=== PATIENT | male | born 2000 | race Caucasian/White ===

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

== ENCOUNTER 2021-07-23 10:02 | Emergency (ER) | payer OTHER, SELFPAY ==
[2021-07-23 10:15] VITALS: BP 157/88; PULSE 76; RESP 18; TEMP 36.8; O2SAT 100
--- NOTE | 2021-07-23 10:37 | ED.EYEPROB ---
HPI - Eye Problem General Chief complaint: Eye Problems Stated complaint: left eye pain Time Seen by Provider: 07/23/21 10:37 Source: patient Mode of arrival: ambulatory Limitations: no limitations History of Present Illness HPI Narrative: 20-year-old male presented for complaint of left eye irritation. He states he felt like he got some sawdust inside the eye about an hour prior to arrival. He states he rubbed it and rinsed it with a hose for about 30 minutes. He still feels something is in the eye. Endorses watery eye. He denies pain, photophobia, vision changes or headache. chief complaint: eye pain Related Data Allergies Allergy/AdvReac Type Severity Reaction Status Date / Time No Known Allergies Allergy Mild Verified 08/14/20 10:43 Review of Systems Review of Systems: CONSTITUTIONAL: Denies body aches, fever, chills EYES:Endorses swelling, redness to left eye ENT: Denies rhinorrhea, congestion, sore throat, or otalgia. CARDIOVASCULAR: Denies chest pain, palpitations RESPIRATORY: Denies cough or dyspnea. NEUROLOGIC: Denies headache, numbness, tingling, or weakness. All systems reviewed & are unremarkable except as noted in HPI and below PMFSH Past Medical History Medical History Cyst History of hypertension Surgical History Surgical History History of incision and drainage LT axilla Family History Family History Mother Blood clot associated with vein wall inflammation Diabetes mellitus Sibling Diabetes mellitus Social History Social History Smoking status: Never smoker Tobacco type: cigarettes Second hand tobacco smoke exposure: No Alcohol intake: never Substance use: current Substance use type: does not use Gender identity (if verbalized by the patient): Male Comments At time of signature, I have reviewed and agree with nursing past medical, surgical, social and family history unless otherwise noted. Please see nursing chart for further information. There is no relevant family history pertinent to the presenting complaint Exam Narrative: GENERAL: Well-appearing, well-nourished, and in no acute distress. HEAD: Normocephalic, atraumatic. EYES: mild left conjunctival injection, mild upper and lower eye lid swelling/redness. PERRLA. EOMI. Lid eversion showed no FB. ENT: Mucous membranes pink and moist. No rhinorrhea. TMs normal bilaterally. Throat normal. Uvula midline. CHEST: No respiratory distress. Clear to auscultation. HEART: Regular rate and rhythm. No murmur appreciated. Normal peripheral pulses. SKIN: Warm, dry, no rash. Normal skin turgor. NEURO: No focal deficits. Alert and oriented x3. Steady gait Course Course Emergency Course: Patient is aware of diagnosis, understands and agrees to treatment plan. Anticipatory guidance given. Patient agrees to follow-up as directed and is aware of reasons to seek care at the emergency department. Portions of this record may have been created with voice recognition software Level of Care: Express Care Visit Vital Signs Vital signs: Vital Signs Temperature 98.3 F 07/23/21 10:15 Pulse Rate 76 07/23/21 10:15 Respiratory Rate 18 07/23/21 10:15 Blood Pressure 157/88 H 07/23/21 10:15 Pulse Oximetry 100 07/23/21 10:15 Oxygen Delivery Room Air 07/23/21 10:15 Temperature 98.3 F 07/23/21 10:15 Pulse Rate 76 07/23/21 10:15 Respiratory Rate 18 07/23/21 10:15 Blood Pressure 157/88 H 07/23/21 10:15 Pulse Oximetry 100 07/23/21 10:15 Oxygen Delivery Room Air 07/23/21 10:15 Procedures FB Removal Eye Foreign Body #1: Foreign Body Removal Date: 07/23/21 Location: eye (L) Topical anesthetic used: tetracaine Evidence of corneal pe
== END 2021-07-23 11:17 | disposition home or self-care (01) ==
PROVIDERS: Emergency Provider Nurse Practitioner Family
DX: H18.892 Other specified disorders of cornea, left eye (principal); I10 Essential (primary) hypertension
CPT/HCPCS: 99213; A9270; G0463

== ENCOUNTER 2022-05-18 16:54 | Emergency (ER) | payer OTHER, SELFPAY ==
--- NOTE | 2022-05-18 17:05 | ED.EYEPROB ---
HPI - Eye Problem General Chief complaint: Eye Problems Stated complaint: rt eye irritation Time Seen by Provider: 05/18/22 17:08 Source: patient Mode of arrival: ambulatory Limitations: no limitations History of Present Illness HPI Narrative: 21-year-old male presented for complaint of bilateral eye pain and irritation since yesterday. He states yesterday he may have gotten mud or liquid into the left eye and has had mild redness. States today he got debris into the right eye while working on his car. Endorses pain is worse in the right eye, with associated light sensitivity when outside and tearing. Denies foreign body sensation, vision changes, purulent drainage, headache, dizziness, nausea, vomiting, fevers or chills. He attempted to rinse the eye yesterday. MD chief complaint: eye pain Related Data Allergies Allergy/AdvReac Type Severity Reaction Status Date / Time cephalexin [From Keflex] Allergy Unknown Verified 05/18/22 17:18 Review of Systems Review of Systems: CONSTITUTIONAL: Denies body aches, fever, chills EYES:Endorses pain to both eye; denies FB sensation or visual changes ENT: Denies rhinorrhea, congestion, sore throat, or otalgia. CARDIOVASCULAR: Denies chest pain, palpitations RESPIRATORY: Denies cough or dyspnea. GASTROINTESTINAL: Denies abdominal pain, nausea, vomiting, or diarrhea. SKIN: Denies rash, itching, or wounds. MUSCULOSKELETAL: Denies back pain, joint pain, or myalgia. NEUROLOGIC: Denies headache, numbness, tingling, or weakness. All systems reviewed & are unremarkable except as noted in HPI and below PMFSH Past Medical History Medical History Cyst History of hypertension Surgical History Surgical History History of incision and drainage LT axilla Family History Family History Mother Blood clot associated with vein wall inflammation Diabetes mellitus Sibling Diabetes mellitus Social History Social History Smoking status: Never smoker Tobacco type: cigarettes Second hand tobacco smoke exposure: No Alcohol intake: never Substance use: current Substance use type: does not use Living arrangements: with family Occupation/Education: occupation Gender identity (if verbalized by the patient): Male Comments At time of signature, I have reviewed and agree with nursing past medical, surgical, social and family history unless otherwise noted. Please see nursing chart for further information. There is no relevant family history pertinent to the presenting complaint Exam Narrative: GENERAL: Well-appearing HEAD: Normocephalic, atraumatic. EYES: mild left conjunctival injection, no eye lid swelling, redness or drainage. PERRLA, EOMI. Lid eversion shows no foreign body. No corneal abrasion to right eye on Wood's lamp exam. approx 1mm corneal abrasion to left eye. ENT: Mucous membranes pink and moist. No rhinorrhea. TMs normal bilaterally. Throat normal. Uvula midline. CHEST: Breathing unlabored. SKIN: Warm, dry, no rash. Normal skin turgor. NEURO: No focal deficits. Alert and oriented x3 PSYCH: flat affect. Course Course Emergency Course: Patient is aware of diagnosis, understands and agrees to treatment plan. Anticipatory guidance given. Patient agrees to follow-up as directed and is aware of reasons to seek care at the emergency department. Portions of this record may have been created with voice recognition software Level of Care: Express Care Visit Vital Signs Vital signs: Vital Signs Temperature 98.6 F 05/18/22 17:18 Pulse Rate 114 H 05/18/22 17:18 Respiratory Rate 18 05/18/22 17:18 Blood Pressure 157/72 H 05/18/22 17:18 Pulse Oximetry 99 05/18/22 17:18 Oxygen Delivery Room Air 05/18/22 17:18
[2022-05-18 17:18] VITALS: BP 157/72; PULSE 114; RESP 18; TEMP 37; O2SAT 99
== END 2022-05-18 17:30 | disposition home or self-care (01) ==
PROVIDERS: Emergency Provider Nurse Practitioner Family
DX: H57.13 Ocular pain, bilateral (principal)
CPT/HCPCS: 99213; A9270; G0463

== ENCOUNTER 2023-03-22 14:04 | Emergency (ER) | payer OTHER, SELFPAY ==
--- NOTE | 2023-03-22 14:25 | ED.SKABFB ---
HPI - Skin/Abscess/Foreign Bdy General Chief complaint: Skin/Abscess/Foreign Body Stated complaint: Rash Time Seen by Provider: 03/22/23 15:20 Source: patient and RN notes reviewed Mode of arrival: ambulatory Limitations: no limitations History of Present Illness HPI narrative: 22-year-old male presents concern for rash on bilateral hands, wrists, spreading up his arm. Reports exposure poison airam over the weekend, reports he has reacted poison airam before. Reports he has tried [id number] remedies for poison airam without relief. MD complaint: rash Related Data Allergies Allergy/AdvReac Type Severity Reaction Status Date / Time cephalexin [From Keflex] Allergy Unknown Verified 03/22/23 14:35 Review of Systems Review of Systems: CONSTITUTIONAL: Denies malaise, chills, sweats, or fever. EYES: Denies redness, or discharge. ENT: Denies rhinorrhea, congestion, swollen lips, swollen tongue CARDIOVASCULAR: Denies chest pain, palpitations, or edema. RESPIRATORY: Denies cough or dyspnea. GASTROINTESTINAL: Denies abdominal pain, nausea, vomiting SKIN: Reports itchy rash on bilateral wrists, hands, or MUSCULOSKELETAL: Denies joint pain or myalgia. NEUROLOGIC: Denies headache. All systems reviewed & are unremarkable except as noted in HPI and below PMFSH Past Medical History Medical History Cyst History of hypertension Surgical History Surgical History History of incision and drainage LT axilla Family History Family History Mother Blood clot associated with vein wall inflammation Diabetes mellitus Sibling Diabetes mellitus Social History Social History Smoking status: Never smoker Tobacco type: cigarettes Second hand tobacco smoke exposure: No Alcohol intake: never Substance use: current Substance use type: does not use Living arrangements: with family Occupation/Education: occupation Gender identity (if verbalized by the patient): Male Comments At time of signature, agree with nursing past medical, surgical, social and family history. There is no relevant family history pertinent to the presenting complaint Exam Narrative: GENERAL: Well-appearing, well-nourished, and in no acute distress. HEAD: Normocephalic, atraumatic. EYES: PERRLA, conjunctivae clear, and EOMI. ENT: Mucous membranes moist. Oropharynx without edema, erythema or lesions. NECK: Supple. No lymphadenopathy CHEST: Clear to auscultation. No respiratory distress. HEART: Regular rate and rhythm. SKIN: Warm, dry. Raise patches of erythematous rash noted to bilateral hands, wrists, right arm NEURO: Alert and oriented x3. PSYCH: Normal mood and affect Course Course Emergency Course: Patient is aware of diagnosis, understands and agrees to treatment plan. Anticipatory guidance given. Patient agrees to follow-up as directed and is aware of reasons to seek care at the emergency department. Portions of this record may have been created with voice recognition software Level of Care: Express Care Visit Vital Signs Vital signs: Vital Signs Temperature 98.2 F 03/22/23 14:33 Pulse Rate 95 03/22/23 14:33 Respiratory Rate 16 03/22/23 14:33 Blood Pressure 152/82 H 03/22/23 14:33 Pulse Oximetry 100 03/22/23 14:33 Oxygen Delivery Room Air 03/22/23 14:33 Temperature 98.2 F 03/22/23 14:33 Pulse Rate 95 03/22/23 14:33 Respiratory Rate 16 03/22/23 14:33 Blood Pressure 152/82 H 03/22/23 14:33 Pulse Oximetry 100 03/22/23 14:33 Oxygen Delivery Room Air 03/22/23 14:33 Reviewed. MDM - Skin/Abscess/Foreign Bdy MDM Narrative Medical decision making narrative: Does not appear at this time to be erythema multiforme, bullous, SJS, TEN; no evidence at this time to menjivar
[2023-03-22 14:33] VITALS: BP 152/82; PULSE 95; RESP 16; TEMP 36.8; O2SAT 100
== END 2023-03-22 15:48 | disposition home or self-care (01) ==
PROVIDERS: Emergency Provider Nurse Practitioner
DX: L25.9 Unspecified contact dermatitis, unspecified cause (principal)
CPT/HCPCS: 99213; G0463

== ENCOUNTER 2023-03-30 10:15 | Emergency (ER) | payer OTHER, SELFPAY ==
[2023-03-30 10:22] VITALS: BP 160/95; PULSE 103; RESP 16; TEMP 37.6; O2SAT 100
--- NOTE | 2023-03-30 10:30 | ED.URI ---
HPI - URI/Sore Throat General Chief Complaint: Upper Respiratory Infection Stated Complaint: sore throat,sinus problem Time Seen by Provider: 03/30/23 10:30 Source: patient, RN notes reviewed and old records reviewed Mode of arrival: ambulatory Limitations: no limitations History of Present Illness HPI Narrative: 22-year-old male presents to [facility] with complaint sore throat, and bilateral ear fullness for 3 days. Patient shortness of breath, abdominal pain, headache. Patient able to tolerate fluids by mouth. Patient has attempted to treat at home with DayQuil, NyQuil, without relief. Patient endorses no PCP, history hypertension noncompliant with medication. Patient endorses history tonsillitis. Related Data Allergies Allergy/AdvReac Type Severity Reaction Status Date / Time cephalexin [From Keflex] Allergy Unknown Verified 03/30/23 10:40 Review of Systems Review of Systems: All systems reviewed & are unremarkable except as noted in HPI and below Constitutional: Constitutional: Reports as per HPI, Denies chills, Denies excessive sweating, Reports fever(s) and Denies headache(s) Eyes: Eyes: Reports no additional eye complaints ENT: Reports dysphagia, Denies ear discharge and Reports sore throat Cardiovascular: Cardiovascular: Reports no additional cardiovascular complaints, Denies chest pain and Denies dyspnea Respiratory: Respiratory: Reports no additional respiratory complaints, Denies cough and Denies dyspnea Gastrointestinal: Gastrointestinal: Denies diarrhea, Denies nausea and Denies vomiting Musculoskeletal: Musculoskeletal: Reports no additional musculoskeletal complaints Neurologic: Reports system reviewed and no additional complaints, except as documented Psychiatric: Psychiatric: Reports no additional psychiatric complaints PMFSH Past Medical History Medical History Cyst History of hypertension Surgical History Surgical History History of incision and drainage LT axilla Family History Family History Mother Blood clot associated with vein wall inflammation Diabetes mellitus Sibling Diabetes mellitus Social History Social History Smoking status: Never smoker Tobacco type: cigarettes Second hand tobacco smoke exposure: No Alcohol intake: never Substance use: current Substance use type: does not use Living arrangements: with family Occupation/Education: occupation Gender identity (if verbalized by the patient): Male Comments At the time of my signature, I reviewed and agree with the nursing past medical, surgical, social, and family history. There is no relevant family history pertinent to the patient complaint. Exam Const: General: cooperative, healthy appearing, no acute distress, alert, uncomfortable and well nourished Nutritional Appearance: well nourished Orientation/consciousness: patient oriented x3 Limitations: no limitations HENMT: Head: normal to inspection Ears: external ears normal Face/Nose/Sinus: Normal external nose present, Normal nares present, normal facial exam, No erythema and No edema Face and sinus: normal facial exam, no erythema and no edema Mouth: Yes Normal oral and palatal mucosa present Throat: uvula midline, posterior oropharynx abnormal erythema; no exudates, uvula not displaced and no uvular edema Eyes: General: appearance normal, both eyes and all related structures Neck: Neck: normal visual inspection, full ROM and no meningeal signs Lymphatic: no lymphadenopathy noted and no lymphedema noted Chest: Chest palpation & inspection: normal inspection of the chest Resp: Effort & Inspection: normal respiratory effort and able to speak in complete sentences Auscultation: clear to auscultation bilaterally Card
[2023-03-30 10:48] VITALS: BP 150/98
[2023-03-30 11:05] VITALS: BP 150/98
== END 2023-03-30 11:05 | disposition home or self-care (01) ==
PROVIDERS: Emergency Provider Nurse Practitioner Family
DX: J03.90 Acute tonsillitis, unspecified (principal)
CPT/HCPCS: 87081; 87880; 99213; G0463

== ENCOUNTER 2023-08-15 09:04 | Emergency (ER) | payer OTHER, SELFPAY ==
--- NOTE | 2023-08-15 09:13 | ED.SKABFB ---
HPI - Skin/Abscess/Foreign Bdy General Chief complaint: Skin/Abscess/Foreign Body Stated complaint: rash on arms Time Seen by Provider: 08/15/23 09:12 Source: patient Mode of arrival: ambulatory Limitations: no limitations History of Present Illness HPI narrative: Danny is a 22-year-old male patient presenting to the clinic today with complaints of an itchy rash to his bilateral arms, behind his knees, and on his abdomen. He reports that this started yesterday. He reports he was working outside yesterday. Did take a dose of 40 mg of prednisone today without relief. Also has been taking Benadryl for the itching without much relief. Denies any shortness of breath, chest pain, drooling, or difficulty swallowing. Related Data Allergies Allergy/AdvReac Type Severity Reaction Status Date / Time cephalexin [From Keflex] Allergy Unknown Verified 03/30/23 10:40 Review of Systems Review of Systems: Pertinent positives per HPI. Patient denies any fever, chills, headache, visual changes, dizziness, cough, runny nose, sore throat, shortness of breath, chest pain, palpitations, nausea, vomiting, diarrhea, constipation, abdominal pain, or any urinary issues. [facility] Past Medical History Medical History Cyst History of hypertension Surgical History Surgical History History of incision and drainage LT axilla Family History Family History Mother Blood clot associated with vein wall inflammation Diabetes mellitus Sibling Diabetes mellitus Social History Social History Smoking status: Never smoker Tobacco type: cigarettes Second hand tobacco smoke exposure: No Alcohol intake: never Substance use: current Substance use type: does not use Living arrangements: with family Occupation/Education: occupation Gender identity (if verbalized by the patient): Male Comments At the time of my signature, I reviewed and agree with the nursing past medical, surgical, social, and family history. There is no relevant family history pertinent to the patient complaint. Exam Narrative: General: Well-developed, well nourished, in no apparent distress Head: Normocephalic, atraumatic. Cardio: Regular rate and rhythm, s1 and s2 normal, no murmur appreciated. Resp: Clear to auscultation bilaterally, no rhonchi, rales, wheezing or rubs. Integumentary: Cole[place], warm, and dry, intact without lesion, red, nonraised, blanchable, itchy rash to the bilateral forearms, behind the knees, and to the abdomen Course Course Emergency Course: Portions of this record may have been created with voice recognition software. Level of Care: Express Care Visit Vital Signs Vital signs: Vital signs reviewed MDM - Skin/Abscess/Foreign Bdy MDM Narrative Medical decision making narrative: At the time of visit patient is resting comfortably on the exam table. Patient appears to be nontoxic. Plan: I suspect patient has dermatitis likely environmental. Prescription for prednisone and triamcinolone cream was sent to the pharmacy. Supportive measures were discussed with the patient and they voiced understanding discharge instructions and agrees to treatment plan. Return precautions reviewed Differential Diagnosis Differential diagnosis: Likely abscess of skin or subcutaneous tissue, viral exanthem, urticaria, herpes zoster, allergic reaction to drug, cellulitis, eczema, insect bites, impetigo and contact dermatitis Discharge Plan Discharge Clinical Impression: Dermatitis Patient Disposition: Home, Self-Care Condition: Stable Instructions: Antibiotic Form, Dermatitis (ED) Additional Instructions: Apply triamcinolone cream as directed Take prednisone as directed Avoid hot showers May apply calamin
[2023-08-15 09:19] VITALS: BP 150/84; PULSE 95; RESP 16; TEMP 37.1; O2SAT 100
== END 2023-08-15 09:30 | disposition home or self-care (01) ==
PROVIDERS: Emergency Provider Nurse Practitioner Family; PCP Emergency Medicine
DX: L30.9 Dermatitis, unspecified (principal); I10 Essential (primary) hypertension
CPT/HCPCS: 99213; G0463

== ENCOUNTER 2023-08-16 14:14 | Emergency (ER) | payer OTHER, SELFPAY ==
[2023-08-16 14:30] VITALS: BP 149/88; PULSE 90; RESP 18; TEMP 37.4; O2SAT 100
--- NOTE | 2023-08-16 14:38 | ED.SKABFB ---
HPI - Skin/Abscess/Foreign Bdy General Chief complaint: Skin/Abscess/Foreign Body Stated complaint: rash not going away Time Seen by Provider: 08/16/23 14:38 Source: patient Mode of arrival: ambulatory Limitations: no limitations History of Present Illness HPI narrative: 22-year-old male presents with complaint of poison airam rash. Patient reports he has had poison airam in the past and has never been this bad. Has usually taken prednisone it starts to improve right away. Is also taking Benadryl to treat itching. Patient states he is taking 3 doses of prednisone and poison airam rash is worsening. All systems reviewed and negative except as noted above. Related Data Home Medications Medication Instructions Recorded Confirmed alprazolam 0.5 mg tablet 0.5 mg PO DAILY 08/16/23 08/16/23 amoxicillin 875 mg tablet mg 08/16/23 irbesartan 75 mg tablet 75 mg PO DAILY 08/16/23 08/16/23 Allergies Allergy/AdvReac Type Severity Reaction Status Date / Time cephalexin [From Keflex] Allergy Unknown Verified 03/30/23 10:40 Review of Systems Review of Systems: CONSTITUTIONAL: Denies fever, chills, or sweats. EYES: Denies visual changes, redness, or discharge. ENT: Denies rhinorrhea, congestion, sore throat, or otalgia. CARDIOVASCULAR: Denies chest pain, palpitations, or edema. RESPIRATORY: Denies cough or dyspnea. GASTROINTESTINAL: Denies abdominal pain, nausea, vomiting, or diarrhea. GENITOURINARY: Denies dysuria or hematuria. SKIN: Reports poison airam rash anditching. MUSCULOSKELETAL: Denies back pain, joint pain, or myalgia. NEUROLOGIC: Denies headache, numbness, or weakness. PSYCHIATRIC: Denies anxiety or depression. All other systems reviewed are negative, except as documented in HPI. [facility] Past Medical History Medical History Cyst History of hypertension Surgical History Surgical History History of incision and drainage LT axilla Family History Family History Mother Blood clot associated with vein wall inflammation Diabetes mellitus Sibling Diabetes mellitus Social History Social History Smoking status: Never smoker Tobacco type: cigarettes Second hand tobacco smoke exposure: No Alcohol intake: never Substance use: current Substance use type: does not use Living arrangements: with family Occupation/Education: occupation Gender identity (if verbalized by the patient): Male Comments At time of signature, agree with nursing past medical, surgical, social and family history. There is no relevant family history pertinent to the presenting complaint. Exam Narrative: GENERAL: This is a well-nourished, well-developed patient, in no apparent distress. HEAD: normocephalic, atraumatic. EYES: PERRL. Sclera clear/white. Vision is grossly intact. EARS: External ears normal NOSE: External nose normal NECK: Neck supple, non-tender without lymphadenopathy, masses or thyromegaly. CARDIOVASCULAR: Regular rate and rhythm without murmurs, gallops, or rubs. RESPIRATORY: Clear to auscultation. Breath sounds equal bilaterally. No wheezes, rales, or rhonchi. SKIN: warm, Dry, intact with no suspicious lesions, good texture and turgor. erythematous vesicular rash with swelling to bilateral arms, trunk, face NEURO: awake, alert, and oriented to person, place and time. There were no obvious focal neurologic abnormalities. EXTREMITIES: No joint tenderness, effusion, or edema noted. Course Course Level of Care: Express Care Visit Vital Signs Vital signs: Vital Signs Temperature 37.4 C 08/16/23 14:30 Pulse Rate 90 08/16/23 14:30 Respiratory Rate 18 08/16/23 14:30 Blood Pressure 149/88 H 08/16/23 14:30 Pulse Oximetry 100 08/16/23 14:30 Oxygen [employer]
[2023-08-16] MEDS: TRIAMCINOLONE ACET INJ 40 MG/ML VIAL IM (14:50)
== END 2023-08-16 15:07 | disposition home or self-care (01) ==
PROVIDERS: Emergency Provider Nurse Practitioner Family; PCP Emergency Medicine
DX: L23.7 Allergic contact dermatitis due to plants, except food (principal); I10 Essential (primary) hypertension
CPT/HCPCS: 96372; 99213; G0463; J3301

== ENCOUNTER 2024-09-30 17:22 | Emergency (ER) | payer OTHER, SELFPAY ==
--- NOTE | 2024-09-30 17:29 | ED_ITS ---
HPI - Male Genitourinary General Chief complaint: Urogenital-Male Stated complaint: Groin Pain Time Seen by Provider: 09/30/24 17:29 Source: patient Mode of arrival: ambulatory Limitations: no limitations History of Present Illness HPI Narrative: Danny is a 23-year-old male patient presenting to the clinic today with complaints of left testicle discomfort x1 month. He reports his symptoms started in August. Symptoms improved for about 1 week and then came back. Is having sensitivity and discomfort to the left testicle. Denies any urinary symptoms, hematuria, back pain, or abdominal pain. No concern for STIs. Denies any penile discharge. No pain with ejaculation no blood in his semen. No history of prostatitis. Related Data Home Medications ?Medication ?Instructions ?Recorded ?Confirmed ?Last Taken ?Type irbesartan 75 mg tablet 75 mg PO DAILY 08/16/2309/09 Unknown History Allergies Allergy/AdvReac Type Severity Reaction Status Date / Time cephalexin (From Keflex) Allergy Mild Hives Verified 09/30/24 17:27 Review of Systems Review of Systems: Pertinent positives per HPI. Patient denies any fever, chills, rash, headache, visual changes, dizziness, cough, runny nose, sore throat, shortness of breath, chest pain, palpitations, nausea, vomiting, diarrhea, constipation, abdominal pain, or any urinary issues. [facility] Past Medical History Medical History Cyst History of hypertension Surgical History Surgical History History of incision and drainage LT axilla Family History Family History Mother Blood clot associated with vein wall inflammation Diabetes mellitus Sibling Diabetes mellitus Social History Social History Smoking status: Never smoker Tobacco type: cigarettes Second hand tobacco smoke exposure: No Alcohol intake: never Substance use: current Substance use type: does not use Living arrangements: with family Occupation/Education: occupation Gender identity (if verbalized by the patient): Male Comments At the time of my signature, I reviewed and agree with the nursing past medical, surgical, social, and family history. There is no relevant family history per tinent to the patient complaint. Exam Narrative: General: Well-developed, obese, in no apparent distress. Head: Normocephalic, atraumatic. Cardio: Regular rate and rhythm, s1 and s2 normal, no murmur appreciated. Resp: Clear to auscultation bilaterally, no rhonchi, rales, wheezing or rubs. Abdomen: Soft, pliable, bowel sounds present in all quadrants, non-tender to palpation, no organomegly, no CVAT tenderness. : Circumcised male without corneal adhesions, no penile discharge, sores, lesions, or masses, bilateral testes descended no lesions or masses seen or palpable on the scrotum, tenderness to palpation over the left epididymis Course Course Emergency Course: Portions of this record may have been created with voice recognition software. Level of Care: Express Care Visit Vital Signs Vital signs: Vital signs reviewed MDM - Male Genitourinary MDM Narrative Medical decision making narrative: At the time of visit patient is resting comfortably on the exam table. Patient appears to be nontoxic. Complaints of left testicle discomfort x1 month. He reports his symptoms started in August. Symptoms improved for about 1 week and then came back. Is having sensitivity/discomfort to the left testicle. Denies any urinary symptoms, hematuria, back pain, or abdominal pain. No concern for STIs. Denies any penile discharge. No pain with ejaculation no blood in his semen. No history of prostatitis. On exam patient has tenderness to palpation over the posterior left testicle, cremasteric reflex present, no penile lesions, discharge, or scrotal mass or lesion. Bilateral testes descended Plan: Patient has left testicle pain likely epididymitis but recommend transfer to the ER for further evaluation to rule out torsion or other etiology. Patient agrees to transfer to the emergency room. Patient would like to go to [facility]. Spoke with Nagi GARDUNO at [facility] and he accepts patient for transfer. Differential Diagnosis Differential diagnosis: Likely urinary tract infection, priapism, urethritis, epididymitis, genital herpes simplex, prostatitis, acute retention of urine, inguinal hernia and other (STI) Discharge Plan Discharge Clinical Impression: Left testicular pain Patient Disposition: Acute Care Hospital Condition: Stable Patient Language: Sinhala Prescriptions: No Action irbesartan 75 mg tablet 75 mg PO DAILY Follow-up/Referrals: Luis Hernnadez MD [Primary Care Provider, [facility]] Time of Disposition: 17:50 Quality NIHSS Nursing Documentation ED NIHSS nursing documentation: reviewed/agree
[2024-09-30 17:31] VITALS: BP 150/91; PULSE 93; RESP 18; TEMP 36.3; O2SAT 100
== END 2024-09-30 17:50 | disposition short-term general hospital (02) ==
PROVIDERS: Emergency Provider Nurse Practitioner Family; PCP Emergency Medicine
DX: N50.812 Left testicular pain (principal); I10 Essential (primary) hypertension
CPT/HCPCS: 99212; G0463

== ENCOUNTER 2024-09-30 18:00 | Emergency (ER) | payer OTHER, SELFPAY ==
--- OUTSIDE RECORDS SUMMARY | 2023-10-26 05:17 | XMS_ITS | Continuity of Care Document ---
Author Organization [facility] Address [address] [address] [place] [address] Phone Care Team Providers Care Center Specialists Name Role Phone Luis Hernandez MD Unavailable Unavailable Allergies, Adverse Reactions, Alerts Substance Reaction Status Criticality poison airam extract Hives / Skin RashItching Active No Information Medications Medication Instructions Dosage Effective Dates (start - stop) Status Comments Xanax 0.5 mg tablet take 1 tablet by oral route every 6 hours as needed 0.5 MG - Active PRN for anxiety, avoid driving or operate machines cyclobenzaprine 10 mg tablet take 1 tablet by oral route 2 times every day as needed 10 MG - Active PRN for pain , avoid driving or operate machines irbesartan 75 mg tablet take 1 tablet by oral route every day 75 MG - Active Procedures Procedure Date OFFICE/OUTPATIENT VISIT, EST OFFICE/OUTPATIENT VISIT, EST OFFICE/OUTPATIENT VISIT, EST OFFICE/OUTPATIENT VISIT, EST OFFICE/OUTPATIENT VISIT, EST PREV VISIT, NEW, AGE 18-39 Advance Directives Directive Yes / No Effective Date File Name No Information Encounters Encounter Description Practice Location Reason(s) For Visit Diagnoses Date Provider Providers Copied on Encounter OFFICE/OUTPA TIENT VISIT, EST [facility], [facility] [address], [place], [id number], [place] tel:[phone] [facility] back pain1 (chief complaint) anxiety1 (chief complaint) HTN (chief complaint) Essential (primary) hypertensionGeneral ized Anxiety DisorderMuscle spasm of back 4 Hernandez Luis. [address], [place], [place], [id number] , [place]. tel:[phone] OFFICE/OUTPA TIENT VISIT, [facility], [address], [place], [place], [id number], [place] tel:[phone] [facility] rash1 (chief complaint) HTN (chief complaint) protein1 (chief complaint) HLP (chief complaint) Essential (primary) hypertensionMixed hyperlipidemiaAbnor mality of plasma proteinAllergic contact dermatitis due to plants, except food 4 Hernandez Luis. [address], [place], [place], [address] , [place]. tel:[phone] OFFICE/OUTPA TIENT VISIT, [facility], [address], [place], [place], [address], [place] tel:[phone] [facility] sore throat1 (chief complaint) Acute pharyngitis 4 Hernandez Luis. [address], [place], [place], [id number] , [place]. tel:[phone] OFFICE/OUTPA TIENT VISIT, [facility], [address], [place], [place], [id number], [place] tel:[phone] [facility] HLP (chief complaint) protein (chief complaint) HTN (chief complaint) anxiety1 (chief complaint) Essential (primary) hypertensionGeneral ized Anxiety DisorderMixed hyperlipidemiaAbnor mality of plasma protein 4 Hernandez Luis. [address], [place], [place], [address] , [place]. tel:[phone] OFFICE/OUTPA TIENT VISIT, [facility], [address], [place], [place], [id number], [place] tel:[phone] [facility] HTN (chief complaint) anxiety1 (chief complaint) Generalized Anxiety DisorderEssential (primary) hypertensionDizzine ss Apr- 4 Hernandez Luis. [address], [place], [place], [address] , [place]. tel:[phone] PREV VISIT, NEW, AGE 18-39 [facility], [address], [place], [place], [id number], tel:[phone] [facility] physical (chief complaint) Encounter for general adult medical examination without abnormal findings 4 David Smith. [address] [place], [place], [id number] , [place]. tel:[phone] Family History Family Member Type Diagnosis Age At Onset Father Problem High cholesterol Father Problem Hypertension Mother Problem blood clot Brother Problem Diabetes mellitus Payers Payer name Insurance type Covered constitution party ID Authoriza tion(s) No Information Social History Type Description Quantity Date Captured Comments Alcohol Use Details Caffeine Use Details Unknown Tobacco Use Status Current non-smoker Smoking Status Never smoker Sex Male Vital Signs Date / Time: Height Weight BMI Pulse Rate Blood Pressure Temperature Respiratory Rate Body Surface Area Head Circumference BMI percentile Pulse Ox Inhaled Ox 10:21 AM 69.00 in 222.00 lbs 32.7 8 kg/m eter (2) 88 /min 148/88 mm[Hg] 98.0 F 16 /min Chief Complaint And Reason For Visit From encounter dated '10/26/2023 10:17'. back pain1 (chief complaint). Description: Pt has been digging and lifting at work and he notices acute onset of low back pain for one week Pt denies any sciatica or any loss of bowel or bladder control or saddle area paresthesia. Pt denies any neuropathy. Pt has been taking ibuprofen PRN but not working Pt denies any night time pain Pt c/o sharp pain especially with movement .Pt missed work for several days anxiety1 (chief complaint). Description: Pt has mild anxiety Pt denies any depression or any suicidal or homicidal thought, pt denies any crying spells. HTN (chief complaint). Description: Pt has HTN Pt takes irbesartan and his bp is borderline pt denies any chest pain or headache Plan Of Treatment Date Type Action Status No Information History Of Present Illness Encounter Date Complaint History Of Prese nt Illness back pain1 Pt has been digg ing and lifting at work and he notices acute onset of low back pain for one week Pt denies any sciatica or any loss of bowel or bladder control or saddle area paresthesia. Pt denies any neuropathy. Pt has been taking ibuprofen PRN but not working Pt denies any night time pain Pt c/o sharp pain especially with movement .Pt missed work for several days HTN Pt has HTN Pt ta kes irbesartan and his bp is borderline pt denies any chest pain or headache anxiety1 Pt has mild anxi ety Pt denies any depression or any suicidal or homicidal thought, pt denies any crying spells. HTN Pt has HTN, Pt t akes irbesartan and his bp is stable Pt denies any chest pain or headache protein1 Pt has elevated total protein level Pt has not done SPEP and UPEP yet HLP Pt has HLP pt is working on diet and exercise rash1 pt c/o acute ons et of itchy rash both arm and spreading to chest and leg since 5 days Pt did expose to poison IV the day of onset. Pt went to ER 3 days ago and he was given tapering dose of prednisone and then he went back to ER two days ago and received steroid IM injections. Pt states that his itchy rash is not improving. Pt notices some oozing as well .Pt denies any fever, chill, sob or wheezing. pt c/o diffuse itching, worse at night sore throat1 Pt c/o acute ons et of sore throat, sinus congestion, , left cervical lymph node pain for two days. Pt denies any cough or fever or sob. Pt has mild dysphagia due to sore throat. Pt denies any headache HLP PIt has HLP Pt i s not on any diet protein Pt has mild high total protein in lab He states that his protein was slightly high in the past as well HTN Pt has HTN Pt ta kes irbesartan and his bp is ok Pt denies any dizziness, chest pain, headache anxiety1 Pt has chronic a nxiety Pt denies any depression or any suicidal or homicidal thought Pt denies any crying spells Pt takes xanax PRn and doing ok HTN Pt has HTN pt torres s been taking norvasc and his bp is around 140/80 at home but he felt occasional dizziness when he is at work with physical exertion along with increasing HR and he feels kind of dizzy and overall weakness while on norvasc Pt states that he only notices above twice while at work with extremely physical exertion. He stopped norvasc one week ago and he has not felt above. Pt denies any palpitation or chest pain or syncope. anxiety1 Pt has mild anxi ety, Pt denies any depression or any suicidal or homicidal thought Pt denies any crying spells Pt states that he still has 19 xanax left. he only takes xanax PRN for anxiety but he usually has to take 1 mg in order to work. physical Pt needs annual physical. pt went to urgent care recently and his bp was found to be around 160/90. Pt has history of HTN and he used to take bp med but he got off BP meds several years ago Pt denies any chest pain or headache Pt states that he feels flushed when his bp is high. Pt denies any headache Pt also has history of fatty liver. Pt denies any abd pain or jaundice Pt rarely drinks alcohol Pt has chronic anxiety Pt denies any depression or any suicidal or homicidal thought pt denies any crying spells Pt failed multiple SSRIs .Pt has occasional panic attacks. He used to take benzo PRn but he has not had it for long time. Instructions Date Instruction Additional Infor mation No Information Assessments Type Assessment Date assessment Essential (primary) hypertension assessment Generalized Anxiety Disorder Oct assessment Muscle spasm of back Mental Status Date Cognitive Assessment Orientation - [place] ed to time, place, person, situation.
--- NOTE | ~2024-09-30 | US_ITS ---
US scrotum doppler INDICATION: Left testicle pain TECHNIQUE: Testicular sonogram utilizing grayscale and color Doppler FINDINGS: The testes are normal in size and appearance. No focal lesions are seen. The right testes measures 0.2 x 2 x 2.7 cm centimeters, and the left testis measures 4.2 x 2.2 x 2.9 cm cm. There is normal vascular flow to both testes. There are small bilateral epididymal cysts. There is no varicocele or hydrocele. Normal left inguinal lymph nodes are present. IMPRESSION: 1. Small bilateral epididymal cysts. Reviewed, dictated and finalized at location O.
--- NOTE | 2024-09-30 18:21 | ED_ITS ---
HPI - General Adult General Chief complaint: Urogenital-Male Stated complaint: TINGLING TESTICLE Time Seen by Provider: 09/30/24 18:10 History of Present Illness HPI narrative: Patient is a 23-year-old gentleman emergency department with chief complaint of left testicle discomfort patient states that had some intermittent discomfort since July and reports that few days ago he started having discomfort again in left testicle. Patient reports that not worsened by anything denies penile discharge denies burning with urination patient reports no actual true pain patient reports that his feels comfortable the patient states that is concerned that he may have a testicular torsion Related Data Home Medications ?Medication ?Instructions ?Recorded ?Confirmed ?Last Taken ?Type irbesartan 75 mg tablet 75 mg PO DAILY 08/16/2309/09 Unknown History Allergies Allergy/AdvReac Type Severity Reaction Status Date / Time cephalexin (From Keflex) Allergy Mild Hives Verified 09/30/24 17:27 Review of Systems 2 Review of Systems: A 10 system review of systems was completed on the patient and is negative except for what is stated in the HPI. Nursing and ancillary documentation was reviewed. [facility] Past Medical History Medical History Cyst History of hypertension Surgical History Surgical History History of incision and drainage LT axilla Family History Family History Mother Blood clot associated with vein wall inflammation Diabetes mellitus Sibling Diabetes mellitus Social History Social History Smoking status: Never smoker Tobacco type: cigarettes Second hand tobacco smoke exposure: No Alcohol intake: never Substance use: current Substance use type: does not use Living arrangements: with family Occupation/Education: occupation Gender identity (if verbalized by the patient): Male Exam 2 Narrative: GENERAL: Well-appearing, well-nourished, and in no acute distress. HEAD: Normocephalic, atraumatic. EYES: PERRLA and EOMI. ENT: Nares clear, no rhinorrhea or epistaxis. Mucous membranes moist. NECK: Supple. CHEST: Clear to auscultation. No respiratory distress. HEART: Regular rate and rhythm. No murmur heard. Normal peripheral pulses. ABDOMEN: Soft, nontender, nondistended, normal active bowel sounds. : Minimal tenderness in the left scrotal area no erythema no crepitance no necrotic tissue no appreciable abscess no appreciable hernia EXTREMITIES: Normal range of motion. No edema. SKIN: Warm, dry, no rash. NEURO: No focal deficits. Alert and oriented x3. PSYCH: Normal mood and affect. Medical Decision Making MDM Narrative Medical decision making narrative: Differential UTI, testicular torsion scrotal abscess, scrotal cellulitis Laboratory studies were obtained showed normal CBC CMP showed no acute abnormality urinalysis showed no evidence UTI Scrotal ultrasound is still pending Lab Data 09/30/24 18:28 09/30/24 18:27 Labs: Lab Results 09/30/24 09/30/24 09/30/24 Range/Units 18:26 18:27 18:28 WBC 7.5 (4.5-10.0) K/mm3 RBC 5.21 (4.6-6.20) M/mm3 Hgb 15.4 (14.0-18.0) g/dL Hct 45.8 (42.0-52.0) % MCV 87.9 (80-100) fl MCH 29.6 (26-34) pg MCHC 33.6 (32-36) g/dl RDW 12.1 (11.5-14.5) % Plt Count 287 (150-375) k/mm3 MPV 8.9 (7.4-10.4) fl Immature Gran % (Auto) 0.4 (0-0.5) % Neut % (Auto) 58.7 (45.5-73.1) % Lymph % (Auto) 28.1 (18.3-44.2) % [place] % (Auto) 8.8 H (2.6-8.5) % Eos % (Auto) 3.1 (0-4.4) % Baso % (Auto) 0.9 (0.2-1.2) % Lymph # (Auto) 2.11 (0.9-3.2) K/mm3 [place] # (Auto) 0.7 H (0.1-0.6) K/mm3 Eos # (Auto) 0.2 (0-0.3) K/mm3 Baso # (Auto) 0.1 (0.0-0.1) K/mm3 Abs Immat Gran (auto) 0.03 (0.00-0.031) K/mm3 Absolute Neuts (auto) 4.4 (1.3-6.7) K/mm3 Absolute Nucleated RBC 0.000 (0.0-0.012) K/mm3 Nucleated RBC % 0.0 (0.0-0.2) % Sodium 141 (137-145) mmol/L Potassium 3.7 (3.4-5.0) mmol/L Chloride 103 (98-107) mmol/L Carbon Dioxide 25 (22-30) mmol/L Anion Gap 13 H (4-12) mmol/L BUN 15 (9-20) mg/dL Creatinine 0.92 (0.7-1.3) mg/dL Estim Creat Clear Calc Not Reportable Estimated GFR > 60 (59 - ) Glucose 99 (65-110) mg/dL Calcium 9.8 (8.4-10.2) mg/dL Total Bilirubin 0.5 (0.2-1.3) mg/dL AST 44 (17-59) U/L ALT 63 H (6-50) U/L Alkaline Phosphatase 52 (38-126) U/L Total Protein 9.2 H (6.3-8.2) g/dL Albumin 5.0 (3.5-5.1) g/dL Urine Color Yellow (Yellow) Urine Appearance Cloudy H (Clear) Urine pH 6.0 (5.0-9.0) Ur Specific [place] 1.020 (1.001-1.035) Urine Protein Negative (Negative) mg/dL Urine Glucose (UA) Negative (Negative) mg/dL Urine Ketones Negative (Negative) mg/dL Ur Blood (Man) Negative (Negative) Urine Nitrate Negative (Negative) Urine Bilirubin Negative (Negative) Urine Urobilinogen 1.0 (<2.0) mg/dL Leukocyte Esterase Rfl Negative (Negative) SHORTY/UL Urine RBC 0-2 (0-2) /hpf Urine WBC 0-5 (0-3) /hpf Ur Squamous Epith Cells None seen (Few) /hpf Urine Bacteria None seen /hpf Urine Casts 0-2 C. trachomatis (PCR) Not detected (NOT DETECTE) N. gonorrhoeae (PCR) Not detected (NOT DETECTE) Discharge Plan Discharge Clinical Impression: Cyst of epididymis, Left testicular pain Patient Disposition: Home Condition: Stable Instructions: Antibiotic Form, Scrotal Pain (ED) Additional Instructions: Urinalysis shows no urinary infection. Test for chlamydia gonorrhea were negative the ultrasound shows no testicular torsion or abscess. you have small epididymal cyst on the ultrasound on both the left and right. these are usually do not cause problems if you continued to have discomfort please follow- up with urology Patient Language: Gibraltarian Prescriptions: No Action irbesartan 75 mg tablet 75 mg PO DAILY Follow-up/Referrals: Nicholas Liriano MD [Physician, Urology] Luis Hernandez MD [Primary Care Provider, Family Practice] Time of Disposition: 20:06
[2024-09-30 18:41] LABS: Hematocrit 45.8 % (42.0-52.0); Hemoglobin 15.4 g/dL (14.0-18.0); Immature Granulocyte Percent A 0.4 % (0-0.5); Lymphocytes Absolute Auto 2.11 K/mm3 (0.9-3.2); Mean Corpuscular HGB Conc 33.6 g/dl (32-36); Mean Corpuscular Hemoglobin 29.6 pg (26-34); Mean Corpuscular Volume 87.9 fl (80-100); Nucleated Red Blood Cells Absolute Auto 0.000 K/mm3 (0.0-0.012); Nucleated Red Blood Cells Perc 0.0 % (0.0-0.2); Platelet Count Result 287 k/mm3 (150-375); Red Blood Count 5.21 M/mm3 (4.6-6.20); White Blood Count 7.5 K/mm3 (4.5-10.0)
[2024-09-30 18:46] LABS: Alanine Aminotransferase 63 U/L (6-50); Albumin Level 5.0 g/dL (3.5-5.1); Alkaline Phosphatase 52 U/L (38-126); Anion Gap 13 mmol/L (4-12); Aspartate Amino Transferase 44 U/L (17-59); Bilirubin,Total 0.5 mg/dL (0.2-1.3); Blood Urea Nitrogen 15 mg/dL (9-20); Calcium 9.8 mg/dL (8.4-10.2); Carbon Dioxide 25 mmol/L (22-30); Chloride 103 mmol/L (98-107); Estimated Glomerular Filt Rate > 60; Glucose 99 mg/dL (65-110); Potassium 3.7 mmol/L (3.4-5.0); Sodium 141 mmol/L (137-145); Total Protein 9.2 g/dL (6.3-8.2)
[2024-09-30 18:49] LABS: Add Urine Microscopic? YES; Appearance Urine Cloudy (Clear); Glucose Urine UA Negative (Negative); Leukocyte Esterase Ur Negative LEU/UL (Negative); Nitrate Urine Negative (Negative); Non Pathogenic Casts 0-2; Specific Grav Ur 1.020 (1.001-1.035)
== END 2024-09-30 20:30 | disposition home or self-care (01) ==
PROVIDERS: Emergency Provider Emergency Medicine; PCP Emergency Medicine
DX: N50.3 Cyst of epididymis (principal); N50.812 Left testicular pain; I10 Essential (primary) hypertension
CPT/HCPCS: 36415; 76870; 80053; 81001; 85025; 87491; 87591; 93976; 99284